=== PATIENT | female | born 1965 | race Asian ===

== ENCOUNTER 2016-08-24 15:21 | Emergency (ER) | payer SELFPAY ==
[~2016-08-24] VITALS: Ht 160 cm; Wt 52.0 kg
[2016-08-24] MEDS ORDERED: KETOROLAC 60MG/2ML VIAL IM ONE (18:00)
[2016-08-24 18:17] VITALS: BP 122/80
== END 2016-08-24 19:40 | disposition home or self-care (01) ==
LOC: ER 15:29
DX: M25.562 Pain in left knee (principal); M71.22 Synovial cyst of popliteal space [Baker], left knee
CPT/HCPCS: 73562; 93971; 96372; 99284; J1885